=== PATIENT | female | born 1940 | race Caucasian/White ===

== ENCOUNTER 2018-09-27 20:39 | Inpatient (IN) | payer OTHER ==
[2018-09-27] MEDS ORDERED: ALBUTEROL SO4 2.5/IPRATROPIUM 0.5 INH SOL 3 ML VIAL.NEB. NEB ONE (20:45)
[2018-09-27] MEDS ORDERED: DEXAMETHASONE SOD PHOSPHATE 10 MG/1 ML VIAL ONE (20:45)
[2018-09-27 21:23] VITALS: BMI 18.8
--- NOTE | 2018-09-27 21:30 | PDOC ---
History of Present Illness - General Chief Complaint: Shortness of Breath Stated Complaint: DIFFICULTY BREATHING Time Seen by Provider: 09/27/18 21:25 History Source: Patient, Care Provider Exam Limitations: No Limitations - History of Present Illness Initial Comments: 09/27/18 21:53 Sources: Patient, Aid (Lexis) HPI: 77yo woman with PMH COPD (on 2L O2 at home), ATK amputation presenting with "pneumonia" since discharge from [facility] with pneumonia. Reports that she was discharged without antibiotics. Aid Lexis reports that this was her second hospitalization for pneumonia this year. Patient endorses constant nonproductive cough since discharge from OSH. Also reports 2 episodes of NBNB emesis today with "chest heaviness" and the sensation that her face and lungs are full of phlegm. Denies fever, chills, chest pain, abdominal pain, headache, current nausea / vomiting, diarrhea / constipation. All: - Levoquin --> hives - Sulfa Topical --> hives Meds: NO LIST PROVIDED - These are approximate [facility] at the time of H&P -Albuterol nebs -Ipratropium nebs (?) -Montelukast -Hydrocortizone cream for sacral ulcers PMH: COPD PSH: ATK amputation left leg SHx: Lives at home, has aid Past History - Travel Traveled outside of the country in the last 30 days: No Close contact w/someone who was outside of country & ill: No - Past Medical History Allergies/Adverse Reactions: Allergies Allergy/AdvReac Type Severity Reaction Status Date / Time divalproex sodium Allergy Verified 09/27/18 23:40 [From Depakote] fentanyl Allergy Verified 09/27/18 23:40 Sulfa (Sulfonamide Allergy Verified 09/27/18 23:40 Antibiotics) - Suicide/Smoking/Psychosocial Hx Smoking History: Unknown if ever smoked Review of Systems - Review of Systems Able to Perform ROS?: Yes Is the patient limited Mauritanian proficient: No Constitutional: No: Chills, Fever Respiratory: Yes: Cough, Shortness of Breath, Wheezing. No: Productive cough Cardiac (ROS): Yes: Other (heaviness / fullness of the chest). No: Symptoms Reported, Chest Pain, Irregular Heart Rate, Palpitations, Syncope ABD/GI: Yes: Nausea, Vomiting. No: Symptoms Reported, Abdominal Distended, Constipated, Diarrhea, Poor Fluid Intake, Rectal Bleeding, Tarry Stools : No: Symptoms Reported, Burning, Dysuria, Discharge, Pain, Urgency Musculoskeletal: No: Symptoms Reported Integumentary: No: Symptoms Reported Neurological: No: Symptoms reported, Headache, Numbness, Tingling All Other Systems: Reviewed and Negative *Physical Exam - Vital Signs Last Vital Signs Temp Pulse Resp BP Pulse Ox 98.2 F 87 19 132/87 97 09/27/18 20:40 09/27/18 20:40 09/27/18 20:40 09/27/18 20:40 09/27/18 20:40 - Physical Exam Comments: 09/27/18 22:10 Vitals reviewed, afebrile, HDS Gen: elderly woman with ATK on the left, laying in bed with NC in place HEENT: normal morphologies, MMM, EOMI, no rhinorrhea, throat non-injected CV: RRR, Nl s1/s2, no murmurs appreciated, no bruits Pulm: coarse expiratory wheezes heard throughout lung gonzalez Abd: soft, non-tender, non-distended, +BSx4 Skin: warm, dry, no jaundice Neuro: Alert and oriented, CN grossly intact ED Treatment Course - LABORATORY CBC & Chemistry Diagram: 09/27/18 23:26 09/27/18 23:26 Medical Decision Making - Medical Decision Making 09/27/18 21:30 77yo woman with PMH COPD (on 2L O2 at home), ATK amputation presenting with non- productive cough since discharge from [facility] with diagnosis of pneumonia. History notable for chest sensation and 2x emesis today, continued cough, absence of constitutional symptoms. Physical notable for poor O2 saturation initially, will not over oxygenate patient to avoid reducing respiratory drive, and wheezes throughout all lung gonzalez. Together concerning for continued pneumonia vs bronchitis vs most likely COPD exacerbation. Of note recently hospitalized patient concerning for HCAP, will direct coverage appropriately if necessary. -Patient Pharmacy is [facility] [phone] -CBC, CMP, Cardiac Profile, BNP, VBG -Duonebs q15x4, Solu-Medrol 125 IV -EKG, CXR -NC increased from 1.5 to 3L with increase in O2 sat from 89% to 93% 09/27/18 23:43 -Patient reevaluated, wheezes similar to prior exam, remains at 93% sat -Finishing first round of duonebs, s/p Solu-Medrol -CXR with mild infiltrate in right lower lobe, unclear significance in patient with recent PNA admission and no prior films -Points more in a direction of COPD exacerbation -Azithromycin 500 given as part of treatment for presumed COPD exacerbation 09/28/18 00:41 -Labs hemolyzed, resent -Planning for admission for COPD exacerbation 09/28/18 00:47 -No leukocytosis, afebrile, potentially resolving PNA on CXR makes infectious etiology of cough / SOB less convincing *DC/Admit/Observation/Transfer Diagnosis at time of Disposition: COPD exacerbation - Discharge Dispostion Condition at time of disposition: Guarded Decision to Admit order: Yes - Referrals Referrals: Ursula De Leon MD [Primary Care Provider] - - Patient Instructions - Post Discharge Activity
[2018-09-27] MEDS ORDERED: methylPREDNISolone NA SUCC 125 MG/2 ML VIAL IVPB ONE (22:04)
--- NOTE | 2018-09-27 22:06 | PDOC ---
Documentation entered by Manuela Carrillo SCRIBE, acting as scribe for Jamison Taylor MD. Jamison Taylor MD: This documentation has been prepared by the Gerardo yang Sammi, SCRIBE, under my direction and personally reviewed by me in its entirety. I confirm that the documentation accurately reflects all work, treatment, procedures, and medical decision making performed by me. Attending Attestation - Resident Resident Name: Pineda Miranda - ED Attending Attestation I have performed the following: I have examined & evaluated the patient, The case was reviewed & discussed with the resident, I agree w/resident's findings & plan, Exceptions are as noted - HPI HPI: 09/27/18 21:50 The patient is a 77 year old female, with a significant PMH of COPD, presenting to ED with cough and SOB. 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 Pt reports mild chest tightness but no pain. Denies F/C. States the cough is non-productive. Of note, pt was recently admitted to [facility] for 2 weeks for PNA. Is not currently on any abx. Pt also reports an episode of emesis today after eating breakfast. Denies abdominal pain. Denies nausea currently. No diarrhea/constipation. Allergies: Levaquin, topical sulfide solutions PCP: Abassi - Physicial Exam PE: 09/27/18 22:08 "GENERAL: Awake, alert, in no acute distress. HEAD: No signs of trauma EYES: PERRLA, EOMI, sclera anicteric, conjunctiva clear ENT: Auricles normal inspection, hearing grossly normal, nares patent, oropharynx clear without exudates. Moist mucosa NECK: Nontender, no stepoffs, Normal ROM, supple, no lymphadenopathy, JVD, or masses LUNGS: + diffuse rhonchi and expiratory wheezes HEART: Regular rate and rhythm, normal S1 and S2, no murmurs, rubs or gallops ABDOMEN: Soft, nontender, normoactive bowel sounds. No guarding, no rebound. No masses EXTREMITIES: + L BKA, Normal range of motion, no edema. No clubbing or cyanosis. No cords, erythema, or tenderness NEUROLOGICAL: Cranial nerves II through XII intact. SKIN: Warm, Dry, normal turgor, no rashes or lesions noted. - Medical Decision Making 09/27/18 22:09 77 F with SOB and cough. Suspect COPD exacerbation. Will also evaluate for recurrent PNA. Pt with N+V earlier today but no abdominal tenderness on exam. - Labs, trop, BNP - EKG - CXR - Nebs, steroids
[2018-09-27] MEDS ORDERED: AZITHROMYCIN IVPB 500 MG in DEXTROSE 5%-WATER - 250 ML IVPB ONE (23:38)
[2018-09-27 23:44] LABS: VENOUS PC02 42.4 mmHg (41-51); VENOUS PH 7.4 (7.31-7.41)
[2018-09-27 23:45] LABS: BASO % 0.3 % (0-2.0); EOS % 0.1 % (0-4.5); HEMATOCRIT 45.5 % (32.4-45.2); HEMOGLOBIN 15.2 GM/dL (10.7-15.3); LYMPH % 5.5 % (8-40); MCH 32.2 pg (25.7-33.7); MCHC 33.4 g/dl (32.0-36.0); MEAN CELL VOLUME 96.2 fl (80-96); MEAN PLT VOLUME 8.1 fl (7.5-11.1); NEUT % 91.1 % (42.8-82.8); PLATELET COUNT 310 K/MM3 (134-434); RBC 4.73 M/mm3 (3.60-5.2); RDW 14.1 % (11.6-15.6); WHITE BLOOD COUNT 6.1 K/mm3 (4.0-10.0)
[2018-09-28] MEDS: ALBUTEROL SO4 2.5/IPRATROPIUM 0.5 INH SOL 3 ML VIAL.NEB. NEB SCH ×3 (00:59→21:23)
[2018-09-28 02:06] LABS: ALK PHOS 184 U/L (45-117); ANION GAP 9 MMOL/L (8-16); BILIRUBIN,TOTAL 0.2 mg/dL (0.2-1); BLOOD UREA NITROGEN 10.8 mg/dL (7-18); CALCIUM 8.5 mg/dL (8.5-10.1); CHLORIDE 105 mmol/L (98-107); CO2 25 mmol/L (21-32); CREATININE 0.5 mg/dL (0.55-1.3); GLUCOSE,RANDOM 181 mg/dL (74-106); N-TERMINAL BNP 234.5 pg/ml (5-450); SGOT/AST 37 U/L (15-37); SGPT/ALT 37 U/L (13-61); SODIUM 139 mmol/L (136-145); TOT PROT 6.9 g/dl (6.4-8.2)
--- NOTE | 2018-09-28 02:34 | PDOC ---
*Physical Exam - Vital Signs Last Vital Signs Temp Pulse Resp BP Pulse Ox 98.2 F 87 19 132/87 97 09/27/18 20:40 09/27/18 20:40 09/27/18 20:40 09/27/18 20:40 09/27/18 20:40 - Physical Exam Comments: 09/28/18 02:05 Patient's care endorsed to me by Dr. Miranda at the end of his shift. Heart Score/ECG Review - History History: Slightly suspicious - Electrocardiogram EKG: Non specific repolarization disturbance - Age Age: >/= 65 - Risk Factors Based on the list above the patient has:: No risk factors known - Troponin Troponin: </= normal limit - Score Heart Score - Total: 3 ED Treatment Course - LABORATORY CBC & Chemistry Diagram: 09/27/18 23:26 09/28/18 01:28 - ADDITIONAL ORDERS Additional order review: Laboratory Results 09/27/18 09/27/18 23:26 23:26 VBG pH 7.40 POC VBG pCO2 42.4 POC VBG pO2 70.0 H VBG HCO3 25.4 VBG O2 Sat (Perla) 93.5 H VBG Base Excess 0.8 Sodium Cancelled Potassium Cancelled Chloride Cancelled Carbon Dioxide Cancelled Anion Gap Cancelled BUN Cancelled Creatinine Cancelled Est GFR (CKD-EPI)AfAm Cancelled Est GFR (CKD-EPI)NonAf Cancelled Random Glucose Cancelled Calcium Cancelled Total Bilirubin Cancelled AST Cancelled ALT Cancelled Alkaline Phosphatase Cancelled Creatine Kinase Cancelled Troponin I Cancelled B-Natriuretic Peptide Cancelled Total Protein Cancelled Albumin Cancelled 09/27/18 23:26 RBC 4.73 MCV 96.2 H MCHC 33.4 RDW 14.1 MPV 8.1 Neutrophils % 91.1 H Lymphocytes % 5.5 L Monocytes % 3.0 L Eosinophils % 0.1 Basophils % 0.3 - Medications Given in the ED: ED Medications Discontinued Medications Generic Name Dose Route Start Last Admin Trade Name Freq PRN Reason Stop Dose Admin Albuterol/Ipratropium 1 amp 09/27/18 22:15 09/28/18 01:00 Duoneb - NEB 09/27/18 23:01 1 amp Q15M BARRINGTON Administration Methylprednisolone Sodium Succinate 125 mg 09/27/18 22:04 09/28/18 00:59 Solu-Medrol - IVPB 09/27/18 22:05 125 mg ONCE ONE Administration Medical Decision Making - Medical Decision Making Laboratory Tests 09/27/18 09/27/18 09/27/18 23:26 23:26 23:26 WBC 6.1 RBC 4.73 Hgb 15.2 Hct 45.5 H MCV 96.2 H MCH 32.2 MCHC 33.4 RDW 14.1 Plt Count 310 MPV 8.1 Absolute Neuts (auto) 5.6 Neutrophils % 91.1 H Lymphocytes % 5.5 L Monocytes % 3.0 L Eosinophils % 0.1 Basophils % 0.3 Nucleated RBC % 0 VBG pH 7.40 POC VBG pCO2 42.4 POC VBG pO2 70.0 H VBG HCO3 25.4 VBG O2 Sat (Perla) 93.5 H VBG Base Excess 0.8 Sodium Cancelled Potassium Cancelled Chloride Cancelled Carbon Dioxide Cancelled Anion Gap Cancelled BUN Cancelled Creatinine Cancelled Est GFR (CKD-EPI)AfAm Cancelled Est GFR (CKD-EPI)NonAf Cancelled Random Glucose Cancelled Calcium Cancelled Total Bilirubin Cancelled AST Cancelled ALT Cancelled Alkaline Phosphatase Cancelled Creatine Kinase Cancelled Troponin I Cancelled B-Natriuretic Peptide Cancelled Total Protein Cancelled Albumin Cancelled 09/28/18 01:28 WBC RBC Hgb Hct MCV MCH MCHC RDW Plt Count MPV Absolute Neuts (auto) Neutrophils % Lymphocytes % Monocytes % Eosinophils % Basophils % Nucleated RBC % VBG pH POC VBG pCO2 POC VBG pO2 VBG HCO3 VBG O2 Sat (Perla) VBG Base Excess Sodium 139 Potassium 4.0 Chloride 105 Carbon Dioxide 25 Anion Gap 9 BUN 10.8 Creatinine 0.5 L Est GFR (CKD-EPI)AfAm 108.96 Est GFR (CKD-EPI)NonAf 94.01 Random Glucose 181 H Calcium 8.5 Total Bilirubin 0.2 AST 37 ALT 37 Alkaline Phosphatase 184 H Creatine Kinase Troponin I < 0.02 B-Natriuretic Peptide 234.5 Total Protein 6.9 Albumin 3.0 L 09/28/18 03:[address] Zambrano; patient admitted to her service. The patient currently states she feels generally unwell. She states she believes she was discharged from [facility] too early, still feeling just as sick. States breathing is somewhat improved but still coughing. 09/28/18 03:32 Added on vancomycin for presumed HCAP. *DC/Admit/Observation/Transfer Diagnosis at time of Disposition: COPD exacerbation Pneumonia Qualifiers: Pneumonia type: due to unspecified organism Laterality: unspecified laterality Lung location: unspecified part of lung Qualified Code(s): J18.9 - Pneumonia, unspecified organism - Discharge Dispostion Condition at time of disposition: Guarded Decision to Admit order: Yes - Referrals Referrals: Ursula De Leon MD [Primary Care Provider] - - Patient Instructions - Post Discharge Activity
[2018-09-28] MEDS ORDERED: AZITHROMYCIN IVPB 500 MG/250 ML BAG IVPB ONE (02:46)
[2018-09-28] MEDS ORDERED: VANCOMYCIN 1 GM in D5W (PRE-DOCKED) 1,000 MG/250 ML IVPB ONE (03:34)
[2018-09-28] MEDS ORDERED: VANCOMYCIN 1 GRAM (PRE-DOCKED) 1,000 MG/250 ML BAG IVPB ONE (04:06)
[2018-09-28] MEDS ORDERED: ALBUTEROL SO4 2.5/IPRATROPIUM 0.5 INH SOL 3 ML VIAL.NEB. NEB PRN (10:14)
--- NOTE | 2018-09-28 11:09 | EKG ---
Test Reason : Blood Pressure : / mmHG Vent. Rate : 087 BPM Atrial Rate : 087 BPM P-R Int : 160 ms QRS Dur : 078 ms QT Int : 390 ms P-R-T Axes : 090 -29 -73 degrees QTc Int : 469 ms NORMAL SINUS RHYTHM BASELINE ARTIFACT POSSIBLE LEFT ATRIAL ENLARGEMENT NONSPECIFIC ST AND T WAVE ABNORMALITY ABNORMAL ECG NO PREVIOUS ECGS AVAILABLE Confirmed by WILLIAMS TAN MD ([id number]) on 09/28/2018 11:08:52 AM Referred By: Confirmed By:WILLIAMS TAN MD
[2018-09-28] MEDS: methylPREDNISolone NA SUCC 40 MG/1 ML VIAL IVPUSH SCH ×2 (12:58→18:40)
--- NOTE | 2018-09-28 14:44 | CON.PULM ---
Consult Consult Specialty:: PULM/CCM Referred by:: Hospitalist Reason for Consultation:: SOB - History of Present Illness Chief Complaint: SOB History of Present Illness: 77 F, COPD on home O2 for about the past month. Admitted due to increased cough and SOB. Patient is a poor historian but her aide is at the bedside. Apparetly the patient reported worsening cough and SOB. No travel history or sick contacts. She was recently admitted to [place] twice for similar symptoms. On the last admission she was prescribed home O2. No documented fever or chills. - History Source History Provided By: Medical Record Limitations to Obtaining History: Poor Historian - Past Medical History Pulmonary: Yes: Bronchitis, COPD, O2 Dependent, Pneumonia. No: Asthma, Cancer, Previously Intubated, Pulmonary Embolus, Pulmonary Fibrosis, Sleep Apnea - Smoking History Smoking history: Unknown if ever smoked Home Medications - Allergies Allergies/Adverse Reactions: Allergies Allergy/AdvReac Type Severity Reaction Status Date / Time divalproex sodium Allergy Verified 09/27/18 23:40 [From Depakote] fentanyl Allergy Verified 09/27/18 23:40 Sulfa (Sulfonamide Allergy Verified 09/27/18 23:40 Antibiotics) - Home Medications Home Medications: Ambulatory Orders Unobtainable 09/28/18 Review of Systems Unable to obtain ROS, reason: Poor historian Physical Exam Vital Sings: Vital Signs Temperature 98.2 F 09/28/18 13:44 Pulse Rate 86 09/28/18 13:44 Respiratory Rate 18 09/28/18 13:44 Blood Pressure 121/76 09/28/18 13:44 O2 Sat by Pulse Oximetry (%) 98 09/28/18 09:00 Constitutional: Yes: Well Nourished, No Distress Eyes: Yes: Conjunctiva Clear, EOM Intact HENT: Yes: Atraumatic, Normocephalic Neck: Yes: Supple, Trachea Midline Cardiovascular: Yes: Regular Rate and Rhythm Respiratory: Yes: Cough, Diminished, On Nasal O2, Rhonchi. No: Accessory Muscle Use, Rales, SOB, SOB on Exertion, Stridor, Tachypnea, Wheezes ...Inspection: Yes: WNL ...Clubbing: No Gastrointestinal: Yes: Normal Bowel Sounds, Soft Renal/: Yes: WNL Extremities: Yes: Shortened Edema: Yes Peripheral Pulses WNL: Yes Integumentary: Yes: WNL Neurological: Yes: WNL, Alert Psychiatric: Yes: Alert Labs: CBC, BMP 09/27/18 23:26 09/28/18 01:28 Imaging - Results Chest X-ray: Report Reviewed, Image Reviewed Problem List - Problems (1) Abnormal CXR Code(s): R93.89 - ABNORMAL FINDINGS ON DX IMAGING OF OTH BODY STRUCTURES (2) COPD exacerbation Code(s): J44.1 - CHRONIC OBSTRUCTIVE PULMONARY DISEASE W (ACUTE) EXACERBATION (3) Pneumonia Code(s): J18.9 - PNEUMONIA, UNSPECIFIED ORGANISM Qualifiers: Pneumonia type: due to unspecified organism Laterality: unspecified laterality Lung location: unspecified part of lung Qualified Code(s): J18.9 - Pneumonia, unspecified organism Assessment/Plan Medrol Urine antigen BD TX standing and PRN Noted Levaquin CT chest was ordered but not completed Will follow Thank you. Dr Hollingsworth
[2018-09-28] MEDS ORDERED: ALBUTEROL SO4 0.083% IH SOL 2.5 MG/3 ML VIAL.NEB. NEB PRN (14:48)
--- NOTE | 2018-09-28 20:47 | HP ---
Admitting History and Physical - Admission History of Present Illness: Pt is a 77 y/o female with PMH significant for COPD (on 2L O2 at home), who presents to the ER "pneumonia" since discharge from [facility]. As per family pt was discharged without antibiotics. Pt complains of nonproductive cough. for a few weeks. On day if admission it was reported that pt had 2 episodes of NBNB emesis with "chest heaviness". - Past Medical History Pulmonary: Yes: COPD, O2 Dependent, Pneumonia - Smoking History Smoking history: Unknown if ever smoked Home Medications - Allergies Allergies/Adverse Reactions: Allergies Allergy/AdvReac Type Severity Reaction Status Date / Time divalproex sodium Allergy Verified 09/27/18 23:40 [From Depakote] fentanyl Allergy Verified 09/27/18 23:40 Sulfa (Sulfonamide Allergy Verified 09/27/18 23:40 Antibiotics) - Home Medications Home Medications: Ambulatory Orders Unobtainable 09/28/18 Physical Examination Vital Signs: Vital Signs Temperature 98.6 F 09/28/18 19:24 Pulse Rate 75 09/28/18 19:24 Respiratory Rate 18 09/28/18 19:24 Blood Pressure 109/67 09/28/18 19:24 O2 Sat by Pulse Oximetry (%) 98 09/28/18 09:00 Eyes: Yes: WNL HENT: Yes: WNL Neck: Yes: WNL, Supple Cardiovascular: Yes: WNL, Regular Rate and Rhythm Respiratory: Yes: Wheezes Gastrointestinal: Yes: WNL, Normal Bowel Sounds, Soft Edema: No Labs: CBC, BMP 09/27/18 23:26 09/28/18 01:28 Problem List - Problems (1) COPD exacerbation Assessment/Plan: Cont IV steroids Cont IV levaquin Cont nebulizers CXR showes ? infrahilar opacity Will check ct scan chest Code(s): J44.1 - CHRONIC OBSTRUCTIVE PULMONARY DISEASE W (ACUTE) EXACERBATION
[2018-09-29] MEDS: methylPREDNISolone NA SUCC 40 MG/1 ML VIAL IVPUSH SCH ×3 (02:21→17:15)
[2018-09-29] MEDS: ALBUTEROL SO4 2.5/IPRATROPIUM 0.5 INH SOL 3 ML VIAL.NEB. NEB SCH ×3 (07:40→19:47)
[2018-09-29 08:30] LABS: ALBUMIN 2.9 g/dl (3.4-5.0); BILIRUBIN,TOTAL 0.3 mg/dL (0.2-1); BLOOD UREA NITROGEN 8.2 mg/dL (7-18); CALCIUM 8.5 mg/dL (8.5-10.1); CREATININE 0.4 mg/dL (0.55-1.3); POTASSIUM 4.7 mmol/L (3.5-5.1); TOT PROT 6.7 g/dl (6.4-8.2)
[2018-09-29] MEDS: ENOXAPARIN NA (PORCINE) 40 MG/0.4 ML DISP.SYRIN SQ SCH (09:51)
[2018-09-29 10:22] LABS: BASO % 0.1 % (0-2.0); HEMATOCRIT 43.8 % (32.4-45.2); HEMOGLOBIN 14.6 GM/dL (10.7-15.3); LYMPH % 23.3 % (8-40); MCH 31.9 pg (25.7-33.7); MCHC 33.3 g/dl (32.0-36.0); MEAN PLT VOLUME 8.2 fl (7.5-11.1); MONO % 12.5 % (3.8-10.2); NEUT % 64.1 % (42.8-82.8); PLATELET COUNT 293 K/MM3 (134-434); RBC 4.57 M/mm3 (3.60-5.2); RDW 14.3 % (11.6-15.6); WHITE BLOOD COUNT 5.3 K/mm3 (4.0-10.0)
--- NOTE | 2018-09-29 14:08 | PN ---
Progress Note, Physician History of Present Illness: pulmonary alert,feeling better,less dyspneic - Current Medication List Current Medications: Active Medications Albuterol Sulfate (Ventolin 0.083% Nebulizer Soln -) 1 amp NEB Q4H PRN PRN Reason: SHORT OF BREATH/WHEEZING Albuterol/Ipratropium (Duoneb -) 1 amp NEB RTID B[place]INGTON Last Admin: 09/29/18 07:40 Dose: 1 amp Enoxaparin Sodium (Lovenox -) 40 mg SQ DAILY B[place]INGTON Last Admin: 09/29/18 09:51 Dose: 40 mg Levofloxacin (Levaquin 500 Mg Premixed Ivpb -) 500 mg in 100 mls @ 100 mls/hr IVPB DAILY BARRINGTON; Protocol Last Admin: 09/29/18 09:51 Dose: 100 mls/hr Methylprednisolone Sodium Succinate (Solu-Medrol -) 40 mg IVPUSH Q8H-IV BARRINGTON Last Admin: 09/29/18 09:51 Dose: 40 mg - Objective Vital Signs: Vital Signs Temperature 98.4 F 09/29/18 10:00 Pulse Rate 98 H 09/29/18 10:00 Respiratory Rate 20 09/29/18 10:00 Blood Pressure 110/87 09/29/18 10:00 O2 Sat by Pulse Oximetry (%) 95 09/29/18 09:00 Constitutional: Yes: Calm, Thin Eyes: Yes: WNL HENT: Yes: WNL Neck: Yes: WNL Cardiovascular: Yes: Regular Rate and Rhythm, S1, S2 Respiratory: Yes: Wheezes (few scattered wheezes) Gastrointestinal: Yes: Normal Bowel Sounds, Soft Extremities: Yes: WNL Edema: No Labs: CBC, BMP 09/29/18 09:20 09/29/18 07:00 Assessment/Plan Problem List - Problems (1) Abnormal CXR Code(s): R93.89 - ABNORMAL FINDINGS ON DX IMAGING OF OTH BODY STRUCTURES (2) COPD exacerbation Code(s): J44.1 - CHRONIC OBSTRUCTIVE PULMONARY DISEASE W (ACUTE) EXACERBATION (3) Pneumonia Code(s): J18.9 - PNEUMONIA, UNSPECIFIED ORGANISM Qualifiers: Pneumonia type: due to unspecified organism Laterality: unspecified laterality Lung location: unspecified part of lung Qualified Code(s): J18.9 - Pneumonia, unspecified organism Assessment/Plan Medrol same dose BD TX standing and PRN Levaquin DR BRILL
--- NOTE | 2018-09-29 20:38 | PN ---
Progress Note, Physician History of Present Illness: No new complaints - Current Medication List Current Medications: Active Medications Albuterol Sulfate (Ventolin 0.083% Nebulizer Soln -) 1 amp NEB Q4H PRN PRN Reason: SHORT OF BREATH/WHEEZING Albuterol/Ipratropium (Duoneb -) 1 amp NEB RTID BARRINGTON Last Admin: 09/29/18 16:15 Dose: 1 amp Enoxaparin Sodium (Lovenox -) 40 mg SQ DAILY BARRINGTON Last Admin: 09/29/18 09:51 Dose: 40 mg Levofloxacin (Levaquin 500 Mg Premixed Ivpb -) 500 mg in 100 mls @ 100 mls/hr IVPB DAILY BARRINGTON; Protocol Last Admin: 09/29/18 09:51 Dose: 100 mls/hr Methylprednisolone Sodium Succinate (Solu-Medrol -) 40 mg IVPUSH Q8H-IV BARRINGTON Last Admin: 09/29/18 17:15 Dose: 40 mg - Objective Vital Signs: Vital Signs Temperature 99.2 F 09/29/18 18:00 Pulse Rate 91 H 09/29/18 18:00 Respiratory Rate 20 09/29/18 18:00 Blood Pressure 113/77 09/29/18 18:00 O2 Sat by Pulse Oximetry (%) 95 09/29/18 09:00 Respiratory: Yes: Diminished, Wheezes Gastrointestinal: Yes: WNL, Normal Bowel Sounds, Soft Edema: No Labs: CBC, BMP 09/29/18 09:20 09/29/18 07:00 Problem List - Problems (1) COPD exacerbation Assessment/Plan: Cont IV steroids Cont IV levaquin Cont nebulizers CXR showes ? infrahilar opacity CT scan chest shows ? rt infrahilar mass/COPD/atelectasis ?PET scan as outpt Code(s): J44.1 - CHRONIC OBSTRUCTIVE PULMONARY DISEASE W (ACUTE) EXACERBATION
[2018-09-30] MEDS: methylPREDNISolone NA SUCC 40 MG/1 ML VIAL IVPUSH SCH ×3 (02:43→17:38)
[2018-09-30] MEDS: ALBUTEROL SO4 2.5/IPRATROPIUM 0.5 INH SOL 3 ML VIAL.NEB. NEB SCH ×3 (07:32→20:50)
[2018-09-30] MEDS: ENOXAPARIN NA (PORCINE) 40 MG/0.4 ML DISP.SYRIN SQ SCH (09:16)
--- NOTE | 2018-09-30 16:20 | PN ---
Progress Note, Physician History of Present Illness: pulmonary alert,comfortable,-sob,+ moist cough - Current Medication List Current Medications: Active Medications Albuterol Sulfate (Ventolin 0.083% Nebulizer Soln -) 1 amp NEB Q4H PRN PRN Reason: SHORT OF BREATH/WHEEZING Albuterol/Ipratropium (Duoneb -) 1 amp NEB RTID BARRINGTON Last Admin: 09/30/18 14:30 Dose: 1 amp Enoxaparin Sodium (Lovenox -) 40 mg SQ DAILY B[place]INGTON Last Admin: 09/30/18 09:16 Dose: 40 mg Levofloxacin (Levaquin 500 Mg Premixed Ivpb -) 500 mg in 100 mls @ 100 mls/hr IVPB DAILY BARRINGTON; Protocol Last Admin: 09/30/18 09:16 Dose: 100 mls/hr Methylprednisolone Sodium Succinate (Solu-Medrol -) 40 mg IVPUSH Q8H-IV BARRINGTON Last Admin: 09/30/18 09:16 Dose: 40 mg - Objective Vital Signs: Vital Signs Temperature 97.9 F 09/30/18 14:59 Pulse Rate 84 09/30/18 14:59 Respiratory Rate 20 09/30/18 14:59 Blood Pressure 134/86 09/30/18 14:59 O2 Sat by Pulse Oximetry (%) 92 L 09/30/18 09:00 Constitutional: Yes: Well Nourished, Calm Eyes: Yes: WNL HENT: Yes: WNL Neck: Yes: WNL Cardiovascular: Yes: Regular Rate and Rhythm, S1, S2 Respiratory: Yes: Rhonchi (scattered chase rhonchi) Gastrointestinal: Yes: Normal Bowel Sounds, Soft Extremities: Yes: WNL Edema: No Labs: CBC, BMP 09/29/18 09:20 - ....Imaging Cat Scan: Report Reviewed, Image Reviewed (? r infrahilar mass) Assessment/Plan Problem List - Problems (1) Abnormal CXR Code(s): R93.89 - ABNORMAL FINDINGS ON DX IMAGING OF OTH BODY STRUCTURES (2) COPD exacerbation Code(s): J44.1 - CHRONIC OBSTRUCTIVE PULMONARY DISEASE W (ACUTE) EXACERBATION (3) Pneumonia Code(s): J18.9 - PNEUMONIA, UNSPECIFIED ORGANISM Qualifiers: Pneumonia type: due to unspecified organism Laterality: unspecified laterality Lung location: unspecified part of lung Qualified Code(s): J18.9 - Pneumonia, unspecified organism Assessment/Plan Medrol same dose BD TX standing and PRN Levaquin PET CT outpatient chest cta DR REYES
--- NOTE | 2018-09-30 23:55 | PN ---
Progress Note, Physician History of Present Illness: No new complaints - Current Medication List Current Medications: Active Medications Albuterol Sulfate (Ventolin 0.083% Nebulizer Soln -) 1 amp NEB Q4H PRN PRN Reason: SHORT OF BREATH/WHEEZING Albuterol/Ipratropium (Duoneb -) 1 amp NEB RTID BARRINGTON Last Admin: 09/30/18 20:50 Dose: 1 amp Enoxaparin Sodium (Lovenox -) 40 mg SQ DAILY B[place]INGTON Last Admin: 09/30/18 09:16 Dose: 40 mg Levofloxacin (Levaquin 500 Mg Premixed Ivpb -) 500 mg in 100 mls @ 100 mls/hr IVPB DAILY B[place]; Protocol Last Admin: 09/30/18 09:16 Dose: 100 mls/hr Methylprednisolone Sodium Succinate (Solu-Medrol -) 40 mg IVPUSH Q8H-IV ABRRINGTON Last Admin: 09/30/18 17:38 Dose: 40 mg - Objective Vital Signs: Vital Signs Temperature 97.6 F 09/30/18 18:05 Pulse Rate 89 09/30/18 18:05 Respiratory Rate 20 09/30/18 18:05 Blood Pressure 125/68 09/30/18 18:05 O2 Sat by Pulse Oximetry (%) 92 L 09/30/18 09:00 Neck: Yes: WNL, Supple Cardiovascular: Yes: WNL, Regular Rate and Rhythm Respiratory: Yes: Wheezes Gastrointestinal: Yes: WNL, Normal Bowel Sounds, Soft Edema: No Labs: CBC, BMP 09/29/18 09:20 09/29/18 07:00 Problem List - Problems (1) COPD exacerbation Assessment/Plan: Cont IV steroids Cont IV levaquin Cont nebulizers CXR showes ? infrahilar opacity CT scan chest shows ? rt infrahilar mass/COPD/atelectasis ?PET scan as outpt Code(s): J44.1 - CHRONIC OBSTRUCTIVE PULMONARY DISEASE W (ACUTE) EXACERBATION (2) Thrombus Assessment/Plan: Thrombus in lower thoracic and upper abdominal aorta Vascular consult Code(s): I82.90 - ACUTE EMBOLISM AND THROMBOSIS OF UNSPECIFIED VEIN
[2018-10-01] MEDS: methylPREDNISolone NA SUCC 40 MG/1 ML VIAL IVPUSH SCH ×3 (01:49→17:47)
[2018-10-01 08:04] LABS: BASO % 0.1 % (0-2.0); HEMATOCRIT 43.4 % (32.4-45.2); HEMOGLOBIN 14.7 GM/dL (10.7-15.3); LYMPH % 16.5 % (8-40); MCHC 33.8 g/dl (32.0-36.0); MEAN CELL VOLUME 94.7 fl (80-96); MEAN PLT VOLUME 8.1 fl (7.5-11.1); MONO % 6.8 % (3.8-10.2); NEUT % 76.6 % (42.8-82.8); PLATELET COUNT 323 K/MM3 (134-434); RBC 4.58 M/mm3 (3.60-5.2); WHITE BLOOD COUNT 5.9 K/mm3 (4.0-10.0)
[2018-10-01 08:36] LABS: BILIRUBIN,TOTAL 0.4 mg/dL (0.2-1); CALCIUM 8.7 mg/dL (8.5-10.1); CREATININE 0.5 mg/dL (0.55-1.3); POTASSIUM 3.7 mmol/L (3.5-5.1); TOT PROT 6.8 g/dl (6.4-8.2)
[2018-10-01] MEDS: ALBUTEROL SO4 2.5/IPRATROPIUM 0.5 INH SOL 3 ML VIAL.NEB. NEB SCH ×3 (08:55→20:28)
[2018-10-01] MEDS: ENOXAPARIN NA (PORCINE) 40 MG/0.4 ML DISP.SYRIN SQ SCH (10:04)
--- NOTE | 2018-10-01 15:11 | PN ---
Progress Note (short form) - Note Progress Note: More awake and alert. Still with moist cough but the breathing is better. Less SOB. No CP. Intake & Output 09/28/18 09/29/18 09/30/18 10/01/18 23:59 23:59 23:59 23:59 Intake Total 450 537 0 Output Total 200 Balance 250 537 0 Weight 120 lb 120 lb Last Vital Signs Temp Pulse Resp BP Pulse Ox 98.2 F 101 H 20 142/73 94 L 10/01/18 14:44 10/01/18 14:44 10/01/18 10:00 10/01/18 14:44 09/30/18 21:00 Active Medications Albuterol Sulfate (Ventolin 0.083% Nebulizer Soln -) 1 amp NEB Q4H PRN PRN Reason: SHORT OF BREATH/WHEEZING Albuterol/Ipratropium (Duoneb -) 1 amp NEB RTID [facility] Last Admin: 10/01/18 13:53 Dose: Not Given Enoxaparin Sodium (Lovenox -) 40 mg SQ DAILY [facility] Last Admin: 10/01/18 10:04 Dose: 40 mg Levofloxacin (Levaquin 500 Mg Premixed Ivpb -) 500 mg in 100 mls @ 100 mls/hr IVPB DAILY [facility]; Protocol Last Admin: 10/01/18 10:04 Dose: 100 mls/hr Methylprednisolone Sodium Succinate (Solu-Medrol -) 40 mg IVPUSH Q8H-IV [facility] Last Admin: 10/01/18 10:05 Dose: 40 mg Constitutional: Yes: Well Nourished, NAD Eyes: Yes: WNL HENT: Yes: WNL Neck: Yes: WNL Cardiovascular: Yes: Regular Rate and Rhythm, S1, S2 Respiratory: Yes: Bilateral scattered Rhonchi, no wheeze Gastrointestinal: Yes: Normal Bowel Sounds, Soft Extremities: Yes: WNL Edema: No Labs: Laboratory Results - last 24 hr 10/01/18 10/01/18 06:34 06:34 WBC 5.9 RBC 4.58 Hgb 14.7 Hct 43.4 MCV 94.7 MCH 32.0 MCHC 33.8 RDW 14.0 Plt Count 323 MPV 8.1 Absolute Neuts (auto) 4.5 Neutrophils % 76.6 Lymphocytes % 16.5 D Monocytes % 6.8 Eosinophils % 0.0 Basophils % 0.1 Nucleated RBC % 0 Sodium 143 Potassium 3.7 Chloride 108 H Carbon Dioxide 26 Anion Gap 9 BUN 7.0 Creatinine 0.5 L Est GFR (CKD-EPI)AfAm 108.96 Est GFR (CKD-EPI)NonAf 94.01 Random Glucose 116 H Calcium 8.7 Total Bilirubin 0.4 AST 26 ALT 35 Alkaline Phosphatase 156 H Total Protein 6.8 Albumin 3.0 L Assessment/Plan Problem List - Problems (1) Abnormal CXR Code(s): R93.89 - ABNORMAL FINDINGS ON DX IMAGING OF OTH BODY STRUCTURES (2) COPD exacerbation Code(s): J44.1 - CHRONIC OBSTRUCTIVE PULMONARY DISEASE W (ACUTE) EXACERBATION (3) Pneumonia Code(s): J18.9 - PNEUMONIA, UNSPECIFIED ORGANISM Qualifiers: Pneumonia type: due to unspecified organism Laterality: unspecified laterality Lung location: unspecified part of lung Qualified Code(s): J18.9 - Pneumonia, unspecified organism Assessment/Plan IV Medrol BD TX standing and PRN Levaquin PET CT outpatient Noted CTA ordered to assess dissection Dr Hollingsworth Problem List - Problems (1) Abnormal CXR Code(s): R93.89 - ABNORMAL FINDINGS ON DX IMAGING OF OTH BODY STRUCTURES (2) COPD exacerbation Code(s): J44.1 - CHRONIC OBSTRUCTIVE PULMONARY DISEASE W (ACUTE) EXACERBATION (3) Pneumonia Code(s): J18.9 - PNEUMONIA, UNSPECIFIED ORGANISM Qualifiers: Pneumonia type: due to unspecified organism Laterality: unspecified laterality Lung location: unspecified part of lung Qualified Code(s): J18.9 - Pneumonia, unspecified organism
--- NOTE | 2018-10-01 21:43 | PN ---
Progress Note, Physician History of Present Illness: No new complaints - Current Medication List Current Medications: Active Medications Albuterol Sulfate (Ventolin 0.083% Nebulizer Soln -) 1 amp NEB Q4H PRN PRN Reason: SHORT OF BREATH/WHEEZING Albuterol/Ipratropium (Duoneb -) 1 amp NEB RTID [facility] Last Admin: 10/01/18 20:28 Dose: 1 amp Enoxaparin Sodium (Lovenox -) 40 mg SQ DAILY [facility] Last Admin: 10/01/18 10:04 Dose: 40 mg Levofloxacin (Levaquin 500 Mg Premixed Ivpb -) 500 mg in 100 mls @ 100 mls/hr IVPB DAILY [facility]; Protocol Last Admin: 10/01/18 10:04 Dose: 100 mls/hr Methylprednisolone Sodium Succinate (Solu-Medrol -) 40 mg IVPUSH Q8H-IV [facility] Last Admin: 10/01/18 17:47 Dose: 40 mg - Objective Vital Signs: Vital Signs Temperature 98.4 F 10/01/18 19:00 Pulse Rate 97 H 10/01/18 19:00 Respiratory Rate 22 H 10/01/18 19:00 Blood Pressure 159/97 10/01/18 19:00 O2 Sat by Pulse Oximetry (%) 91 L 10/01/18 09:00 Neck: Yes: WNL, Supple Cardiovascular: Yes: WNL, Regular Rate and Rhythm Respiratory: Yes: WNL, Regular, CTA Bilaterally Gastrointestinal: Yes: WNL, Normal Bowel Sounds, Soft Labs: CBC, BMP 10/01/18 06:34 10/01/18 06:34 Problem List - Problems (1) COPD exacerbation Assessment/Plan: Cont IV steroids Cont IV levaquin Cont nebulizers CXR showes ? infrahilar opacity CT scan chest shows ? rt infrahilar mass/COPD/atelectasis ?PET scan as outpt Code(s): J44.1 - CHRONIC OBSTRUCTIVE PULMONARY DISEASE W (ACUTE) EXACERBATION
[2018-10-02] MEDS: methylPREDNISolone NA SUCC 40 MG/1 ML VIAL IVPUSH SCH ×2 (02:00→09:26)
[2018-10-02] MEDS: ALBUTEROL SO4 2.5/IPRATROPIUM 0.5 INH SOL 3 ML VIAL.NEB. NEB SCH ×3 (07:30→20:30)
[2018-10-02] MEDS: ENOXAPARIN NA (PORCINE) 40 MG/0.4 ML DISP.SYRIN SQ SCH (09:26)
--- NOTE | 2018-10-02 12:19 | CONSULT ---
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 Admitted for COPD exacerbation and now on Levaquin and Medrol. Chest CT revealed LLL nodule and thrombus in thoracic and abdominal aorta. Dissection cannot be ruled out. Followed by Dr. Eddie Meadows (neurology/[facility]) for stroke prophylaxis and seizures- reports she is on dilantin at home. Asked to be seen for confusional state. Denies any seizure activity during admission. Review of systems sig for "phantom pains" in left leg after surgery [address] of brain (reviewed): extensive right cerebral lucency suggesting chronic ischemic changes in BOTH right MCA and PETE territories. Atrophy (R>L) WBC= 5.1 MCV= 94.5 FORTINO: Cor reg. No bruit. Neck supple. Wheezing. S/P L AKA. Bruising to right hand. Wearing diaper. NEURO: Alert with non-fluent speech. Ox "7th floor [employer], no Elizabeth's" "December no September" Friday" TRUMP. Can reverse. 03/22 recall @ 3 min. + glabella. CNII-CNXII: EOM's full. No blink to threat from left. Gag ok. Motor: Spastic hemiparesis left arm. Reflexes brisk L > R. Strength normal on R. MARGARETTE's preserved on R. R Plantar silent. Coordination: No R FTN dystaxia. Sensation: Feels pinch R > L. Gait: deferred Impression: Mild B/L cerebral dysfunction (OMS, chronic) likely secondary to [employer] microvascular Severe right cerebral accentuation (Chronic) due to old right CVA (s). Seizure disorder by history Worsened by Toxic-Metabolic Encephalopathy (COPD/PNA) Suggest: Continue antibiotics and hydration. Check TSH, B12, RPR, Dilantin level Review last consultation with Dr. Meadows and resume dilantin for seizure prophylaxis Empirically resume Dilantin 300 mg q HS Agree with clonapepam, as per Dr. Estrada to avoid any possibilty of confusion related to Benzodiazepine withdrawal. Agree with vascular consultation. Would also suggest cardiac consultation (R/O paraxysmal a fib and the need to anticoagulation). Thank you very much, Robb Chavez MD
--- NOTE | 2018-10-02 13:33 | PN ---
Progress Note (short form) - Note Progress Note: Vascular Surgery CT chest reviewed. Thrombus in descending aorta. CTA abd does not show any dissection in aorta. However not offically read. Thrombus could be normal for the pt. No need for any surgery. Just medical management. Will await official read. Julian muhammad DO
--- NOTE | 2018-10-02 14:45 | PN ---
Progress Note (short form) - Note Progress Note: Awake and alert. Breathing feels better. Still with some moist cough but improving. No CP. Intermittent SAGE. Intake & Output 09/29/18 09/30/18 10/01/18 10/02/18 23:59 23:59 23:59 23:59 Intake Total 537 0 50 350 Balance 537 0 50 350 Weight 120 lb Last Vital Signs Temp Pulse Resp BP Pulse Ox 97.4 F L 98 H 22 H 109/57 L 97 10/02/18 10:00 10/02/18 10:00 10/02/18 10:00 10/02/18 10:00 10/02/18 09:00 Active Medications Albuterol Sulfate (Ventolin 0.083% Nebulizer Soln -) 1 amp NEB Q4H PRN PRN Reason: SHORT OF BREATH/WHEEZING Albuterol/Ipratropium (Duoneb -) 1 amp NEB RTID [facility] Last Admin: 10/02/18 07:30 Dose: 1 amp Enoxaparin Sodium (Lovenox -) 40 mg SQ DAILY [facility] Last Admin: 10/02/18 09:26 Dose: 40 mg Levofloxacin (Levaquin 500 Mg Premixed Ivpb -) 500 mg in 100 mls @ 100 mls/hr IVPB DAILY [facility]; Protocol Last Admin: 10/02/18 09:26 Dose: 100 mls/hr Methylprednisolone Sodium Succinate (Solu-Medrol -) 40 mg IVPUSH Q8H-IV [facility] Last Admin: 10/02/18 09:26 Dose: 40 mg Constitutional: Yes: Well Nourished, NAD Eyes: Yes: WNL HENT: Yes: WNL Neck: Yes: WNL Cardiovascular: Yes: Regular Rate and Rhythm, S1, S2 Respiratory: Yes: Bilateral scattered Rhonchi, no wheeze Gastrointestinal: Yes: Normal Bowel Sounds, Soft Extremities: Yes: WNL Edema: No Labs: Assessment/Plan Problem List - Problems (1) Abnormal CXR Code(s): R93.89 - ABNORMAL FINDINGS ON DX IMAGING OF OTH BODY STRUCTURES (2) COPD exacerbation Code(s): J44.1 - CHRONIC OBSTRUCTIVE PULMONARY DISEASE W (ACUTE) EXACERBATION (3) Pneumonia Code(s): J18.9 - PNEUMONIA, UNSPECIFIED ORGANISM Qualifiers: Pneumonia type: due to unspecified organism Laterality: unspecified laterality Lung location: unspecified part of lung Qualified Code(s): J18.9 - Pneumonia, unspecified organism Assessment/Plan Wean IV Medrol BD TX standing and PRN Levaquin PET CT outpatient Family will be providing CT images from [facility] Problem List - Problems (1) Abnormal CXR Code(s): R93.89 - ABNORMAL FINDINGS ON DX IMAGING OF OTH BODY STRUCTURES (2) COPD exacerbation Code(s): J44.1 - CHRONIC OBSTRUCTIVE PULMONARY DISEASE W (ACUTE) EXACERBATION (3) Pneumonia Code(s): J18.9 - PNEUMONIA, UNSPECIFIED ORGANISM Qualifiers: Pneumonia type: due to unspecified organism Laterality: unspecified laterality Lung location: unspecified part of lung Qualified Code(s): J18.9 - Pneumonia, unspecified organism
[2018-10-02] MEDS ORDERED: clonazePAM 0.5 MG TABLET PO SCH (15:30)
--- NOTE | 2018-10-02 15:30 | CON.PSY ---
Psychiatry Consult Chief Complaint: I am ok, I am very anxious, i use take Valium from . I am upset. patient is able to respond to questions. Symptoms: reports: Anxiety - Previous Psychiatric Treatment Outpatient: More than 6 mos ago Inpatient: None - Previous Substance Abuse Treatment Outpatient: None - Reason for Previous Treatment Reason for Previous Treatment: Anxiety or Panic Disorder - Current Medications Current Medications: Active Medications Albuterol Sulfate (Ventolin 0.083% Nebulizer Soln -) 1 amp NEB Q4H PRN PRN Reason: SHORT OF BREATH/WHEEZING Albuterol/Ipratropium (Duoneb -) 1 amp NEB RTID [facility] Last Admin: 10/02/18 07:30 Dose: 1 amp Enoxaparin Sodium (Lovenox -) 40 mg SQ DAILY [facility] Last Admin: 10/02/18 09:26 Dose: 40 mg Levofloxacin (Levaquin 500 Mg Premixed Ivpb -) 500 mg in 100 mls @ 100 mls/hr IVPB DAILY COUNTS INCLUDE 234 BEDS AT THE [facility]; Protocol Last Admin: 10/02/18 09:26 Dose: 100 mls/hr Methylprednisolone Sodium Succinate (Solu-Medrol -) 40 mg IVPUSH DAILY [facility] - Allergies Allergies: Allergies Allergy/AdvReac Type Severity Reaction Status Date / Time divalproex sodium Allergy Verified 09/27/18 23:40 [From Depakote] fentanyl Allergy Verified 09/27/18 23:40 Sulfa (Sulfonamide Allergy Verified 09/27/18 23:40 Antibiotics) - Current Living Status Usual Living Arrangement: Alone - Current Mental Status Evaluation Appearance: Well Groomed Attitude: Cooperative - Affect Affect: Full Range Appropriateness: Appropriate to Content - Mood Mood: Anxious - Speech/Language Expressive: Coherent - Psychomotor Activity Psychomotor Activity: Hyperactive - Thought Process Thought Process: Intact - Thought Content Hallucinations: Absent Delusions: Absent - Self Perception Self Perception: No Impairment - Cognition Attention: Alert Orientation: Time Memory, Immediate Recall: Intact Memory, Short Term: 3/3 Memory, Remote with Promptin/3 - Concentration Serial Sevens Intact: No Simple Calculations Intact: Yes - Abstraction Proverb Interpretation: Intact Judgement: Intact - Insight Insight: Intact - Impulse Control Impulse Control: Good Control - Suicidal Ideation Suicidal Ideation: No - Homicidal Ideation Homicidal Ideation: No Assessment/Plan 1) patient has the mental capacity to make decisions at t5his time. 2) Klonapin 0.5mg for anxiety disorder.
--- NOTE | 2018-10-02 17:41 | PN ---
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 Pt was noted to be poor historian early in her hospital course here, however has improved and deemed to have capacity. Pt had CT Head performed which originally was reported to have acute ICH so we were asked to medically evaluate. Brief PE: VS 10/02/18 17:21 Temperature 98.3 F Pulse Rate 93 H Respiratory 20 Rate Blood Pressure 130/80 Gen: NAD, about to eat dinner, awake, and oriented HEENT: No Gaze deficit, increased secretions, MMM Lungs: Cardiac: RRR no murmurs EXT: L contracted upper extremity, L AKA with no lesions noted at repair, no edema Neuro: EOMI, gag +, hemiparesis of L arm, strength 5/5 in R upper and lower extremities, downgoing babinski R. 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 --Pt's Head CT addended due to type error. pt has No ICH noted. 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 No acute infarcts --In lieu of pt's continued status and revised head CT can continue current management --Continue Medrol 40mg IVP qdaily --Continue Levaquin for PNA Thank you and recall if respiratory status worsens or pt overall deteriorates Mariano Haro, DO - IM PGY-3
[2018-10-02] MEDS: PHENYTOIN NA EXTENDED 100 MG CAPSULE (FP) PO SCH (22:36)
--- NOTE | 2018-10-02 22:40 | PN ---
Progress Note, Physician History of Present Illness: No new complaints ?Competency Pt seen by psych who found pt competent CT scan head also ordered - Current Medication List Current Medications: Active Medications Albuterol Sulfate (Ventolin 0.083% Nebulizer Soln -) 1 amp NEB Q4H PRN PRN Reason: SHORT OF BREATH/WHEEZING Albuterol/Ipratropium (Duoneb -) 1 amp NEB RTID [facility] Last Admin: 10/02/18 20:30 Dose: 1 amp Levofloxacin (Levaquin 500 Mg Premixed Ivpb -) 500 mg in 100 mls @ 100 mls/hr IVPB DAILY [facility]; Protocol Last Admin: 10/02/18 09:26 Dose: 100 mls/hr Methylprednisolone Sodium Succinate (Solu-Medrol -) 40 mg IVPUSH DAILY [facility] Phenytoin Sodium (Dilantin -) 300 mg PO HS [facility] Last Admin: 10/02/18 22:36 Dose: 300 mg - Objective Vital Signs: Vital Signs Temperature 98.3 F 10/02/18 17:21 Pulse Rate 93 H 10/02/18 17:21 Respiratory Rate 20 10/02/18 17:21 Blood Pressure 130/80 10/02/18 17:21 O2 Sat by Pulse Oximetry (%) 97 10/02/18 09:00 Neck: Yes: WNL, Supple Cardiovascular: Yes: WNL Respiratory: Yes: Diminished, Other (Coarse BS B/L) Gastrointestinal: Yes: WNL, Normal Bowel Sounds, Soft Extremities: Yes: Other (LT BKA amputation) Edema: No Labs: CBC, BMP 10/01/18 06:34 10/01/18 06:34 Problem List - Problems (1) COPD exacerbation Assessment/Plan: Pt now on po levaquin/prednisone Cont nebulizers CXR showes ? infrahilar opacity CT scan chest shows ? rt infrahilar mass/COPD/atelectasis ?PET scan as outpt Explained to pt that she needs f/u as outpt w/ pulmonary and business reporting developer Code(s): J44.1 - CHRONIC OBSTRUCTIVE PULMONARY DISEASE W (ACUTE) EXACERBATION (2) CVA (cerebral vascular accident) Assessment/Plan: CT scan head showed chronic infarcts Will add asa Code(s): I63.9 - CEREBRAL INFARCTION, UNSPECIFIED (3) Pneumonia Assessment/Plan: Cont po levaquin/nebulizers Code(s): J18.9 - PNEUMONIA, UNSPECIFIED ORGANISM Qualifiers: Pneumonia type: due to unspecified organism Laterality: unspecified laterality Lung location: unspecified part of lung Qualified Code(s): J18.9 - Pneumonia, unspecified organism (4) Thrombus Assessment/Plan: Thrombus in lower thoracic and upper abdominal aorta Code(s): I82.90 - ACUTE EMBOLISM AND THROMBOSIS OF UNSPECIFIED VEIN
[2018-10-03 07:45] LABS: BASO % 0.3 % (0-2.0); EOS % 0.4 % (0-4.5); HEMATOCRIT 43.1 % (32.4-45.2); HEMOGLOBIN 14.4 GM/dL (10.7-15.3); LYMPH % 23.1 % (8-40); MCH 32.2 pg (25.7-33.7); MCHC 33.6 g/dl (32.0-36.0); MEAN CELL VOLUME 95.8 fl (80-96); MEAN PLT VOLUME 8.3 fl (7.5-11.1); MONO % 11.6 % (3.8-10.2); NEUT % 64.6 % (42.8-82.8); PLATELET COUNT 330 K/MM3 (134-434); RBC 4.49 M/mm3 (3.60-5.2); RDW 13.9 % (11.6-15.6)
[2018-10-03] MEDS: ALBUTEROL SO4 2.5/IPRATROPIUM 0.5 INH SOL 3 ML VIAL.NEB. NEB SCH ×3 (08:00→20:09)
[2018-10-03 08:27] LABS: ALBUMIN 2.8 g/dl (3.4-5.0); BILIRUBIN,TOTAL 0.4 mg/dL (0.2-1); BLOOD UREA NITROGEN 12.8 mg/dL (7-18); CALCIUM 8.2 mg/dL (8.5-10.1); CREATININE 0.6 mg/dL (0.55-1.3); POTASSIUM 3.3 mmol/L (3.5-5.1); TOT PROT 6.2 g/dl (6.4-8.2)
[2018-10-03] MEDS: methylPREDNISolone NA SUCC 40 MG/1 ML VIAL IVPUSH SCH (09:41)
[2018-10-03] MEDS ORDERED: POTASSIUM CHLORIDE TABS 20 MEQ TABLET.ER (FP) PO ONE (11:15)
--- NOTE | 2018-10-03 11:18 | PN ---
Progress Note (short form) - Note Progress Note: Awake and alert. Breathing feels better. Still with some moist cough but improving. No CP. No SAGE. Intake & Output 09/30/18 10/01/18 10/02/18 10/03/18 23:59 23:59 23:59 23:59 Intake Total 0 50 570 Balance 0 50 570 Weight 120 lb Last Vital Signs Temp Pulse Resp BP Pulse Ox 99 F 75 20 139/48 L 96 10/03/18 10:00 10/03/18 10:00 10/03/18 10:00 10/03/18 10:00 10/03/18 09:00 Active Medications Albuterol Sulfate (Ventolin 0.083% Nebulizer Soln -) 1 amp NEB Q4H PRN PRN Reason: SHORT OF BREATH/WHEEZING Albuterol/Ipratropium (Duoneb -) 1 amp NEB RTID [facility] Last Admin: 10/03/18 08:00 Dose: 1 amp Levofloxacin (Levaquin 500 Mg Premixed Ivpb -) 500 mg in 100 mls @ 100 mls/hr IVPB DAILY [facility]; Protocol Last Admin: 10/03/18 09:41 Dose: 100 mls/hr Methylprednisolone Sodium Succinate (Solu-Medrol -) 40 mg IVPUSH DAILY [facility] Last Admin: 10/03/18 09:41 Dose: 40 mg Phenytoin Sodium (Dilantin -) 300 mg PO HS [facility] Last Admin: 10/02/18 22:36 Dose: 300 mg Constitutional: Yes: Well Nourished, NAD Eyes: Yes: WNL HENT: Yes: WNL Neck: Yes: WNL Cardiovascular: Yes: Regular Rate and Rhythm, S1, S2 Respiratory: Yes: Bilateral scattered Rhonchi, no wheeze Gastrointestinal: Yes: Normal Bowel Sounds, Soft Extremities: Yes: WNL Edema: No Labs: Assessment/Plan Problem List - Problems (1) Abnormal CXR Code(s): R93.89 - ABNORMAL FINDINGS ON DX IMAGING OF OTH BODY STRUCTURES (2) COPD exacerbation Code(s): J44.1 - CHRONIC OBSTRUCTIVE PULMONARY DISEASE W (ACUTE) EXACERBATION (3) Pneumonia Code(s): J18.9 - PNEUMONIA, UNSPECIFIED ORGANISM Qualifiers: Pneumonia type: due to unspecified organism Laterality: unspecified laterality Lung location: unspecified part of lung Qualified Code(s): J18.9 - Pneumonia, unspecified organism Assessment/Plan Daily IV Medrol BD TX standing and PRN Levaquin PET CT outpatient Family will be providing CT images from [facility] Can consider change to oral therapy and DC planning Dr Hollingsworth Problem List - Problems (1) Abnormal CXR Code(s): R93.89 - ABNORMAL FINDINGS ON DX IMAGING OF OTH BODY STRUCTURES (2) COPD exacerbation Code(s): J44.1 - CHRONIC OBSTRUCTIVE PULMONARY DISEASE W (ACUTE) EXACERBATION (3) Pneumonia Code(s): J18.9 - PNEUMONIA, UNSPECIFIED ORGANISM Qualifiers: Pneumonia type: due to unspecified organism Laterality: unspecified laterality Lung location: unspecified part of lung Qualified Code(s): J18.9 - Pneumonia, unspecified organism
--- NOTE | 2018-10-03 21:06 | PN ---
Progress Note, Physician History of Present Illness: No new complaints - Current Medication List Current Medications: Active Medications Albuterol Sulfate (Ventolin 0.083% Nebulizer Soln -) 1 amp NEB Q4H PRN PRN Reason: SHORT OF BREATH/WHEEZING Albuterol/Ipratropium (Duoneb -) 1 amp NEB RTID [facility] Last Admin: 10/03/18 20:09 Dose: 1 amp Levofloxacin (Levaquin 500 Mg Premixed Ivpb -) 500 mg in 100 mls @ 100 mls/hr IVPB DAILY [facility]; Protocol Last Admin: 10/03/18 09:41 Dose: 100 mls/hr Methylprednisolone Sodium Succinate (Solu-Medrol -) 40 mg IVPUSH DAILY [facility] Last Admin: 10/03/18 09:41 Dose: 40 mg Phenytoin Sodium (Dilantin -) 300 mg PO HS [facility] Last Admin: 10/02/18 22:36 Dose: 300 mg - Objective Vital Signs: Vital Signs Temperature 97.6 F 10/03/18 14:10 Pulse Rate 86 10/03/18 14:10 Respiratory Rate 20 10/03/18 14:10 Blood Pressure 133/74 10/03/18 14:10 O2 Sat by Pulse Oximetry (%) 96 10/03/18 09:00 Neck: Yes: WNL, Supple Cardiovascular: Yes: WNL, Regular Rate and Rhythm Respiratory: Yes: WNL, Regular, CTA Bilaterally Gastrointestinal: Yes: WNL, Normal Bowel Sounds, Soft Labs: CBC, BMP 10/03/18 06:45 10/03/18 06:45 Problem List - Problems (1) COPD exacerbation Code(s): J44.1 - CHRONIC OBSTRUCTIVE PULMONARY DISEASE W (ACUTE) EXACERBATION (2) Seizure Code(s): R56.9 - UNSPECIFIED CONVULSIONS (3) Anxiety Code(s): F41.9 - ANXIETY DISORDER, UNSPECIFIED (4) CVA (cerebral vascular accident) Code(s): I63.9 - CEREBRAL INFARCTION, UNSPECIFIED (5) Pneumonia Code(s): J18.9 - PNEUMONIA, UNSPECIFIED ORGANISM Qualifiers: Pneumonia type: due to unspecified organism Laterality: unspecified laterality Lung location: unspecified part of lung Qualified Code(s): J18.9 - Pneumonia, unspecified organism (6) Thrombus Code(s): I82.90 - ACUTE EMBOLISM AND THROMBOSIS OF UNSPECIFIED VEIN
[2018-10-03] MEDS: PHENYTOIN NA EXTENDED 100 MG CAPSULE (FP) PO SCH (22:48)
[2018-10-04 07:52] LABS: BASO % 0.5 % (0-2.0); EOS % 1.3 % (0-4.5); HEMATOCRIT 43.9 % (32.4-45.2); HEMOGLOBIN 14.8 GM/dL (10.7-15.3); LYMPH % 19.5 % (8-40); MCH 32.4 pg (25.7-33.7); MCHC 33.7 g/dl (32.0-36.0); MEAN CELL VOLUME 95.9 fl (80-96); MEAN PLT VOLUME 7.9 fl (7.5-11.1); MONO % 11.1 % (3.8-10.2); NEUT % 67.6 % (42.8-82.8); PLATELET COUNT 296 K/MM3 (134-434); RBC 4.58 M/mm3 (3.60-5.2); RDW 14.3 % (11.6-15.6); WHITE BLOOD COUNT 9.8 K/mm3 (4.0-10.0)
[2018-10-04] MEDS: ALBUTEROL SO4 2.5/IPRATROPIUM 0.5 INH SOL 3 ML VIAL.NEB. NEB SCH ×3 (08:18→20:30)
[2018-10-04 08:48] LABS: ALBUMIN 2.8 g/dl (3.4-5.0); BILIRUBIN,TOTAL 0.3 mg/dL (0.2-1); BLOOD UREA NITROGEN 11.6 mg/dL (7-18); CALCIUM 8.3 mg/dL (8.5-10.1); CREATININE 0.5 mg/dL (0.55-1.3); POTASSIUM 3.8 mmol/L (3.5-5.1); TOT PROT 6.3 g/dl (6.4-8.2)
--- NOTE | 2018-10-04 12:13 | PN ---
Progress Note (short form) - Note Progress Note: Awake and alert. Reports breathing feels better. Still with some moist cough but improving. No CP. No SAGE. Intake & Output 10/01/18 10/02/18 10/03/18 10/04/18 23:59 23:59 23:59 23:59 Intake Total 50 570 200 Balance 50 570 200 Last Vital Signs Temp Pulse Resp BP Pulse Ox 98.4 F 79 22 H 132/88 96 10/04/18 09:58 10/04/18 09:58 10/04/18 09:58 10/04/18 09:58 10/04/18 09:00 Active Medications Albuterol Sulfate (Ventolin 0.083% Nebulizer Soln -) 1 amp NEB Q4H PRN PRN Reason: SHORT OF BREATH/WHEEZING Albuterol/Ipratropium (Duoneb -) 1 amp NEB RTID [facility] Last Admin: 10/04/18 08:18 Dose: 1 amp Levofloxacin (Levaquin 500 Mg Premixed Ivpb -) 500 mg in 100 mls @ 100 mls/hr IVPB DAILY [facility]; Protocol Last Admin: 10/03/18 09:41 Dose: 100 mls/hr Methylprednisolone Sodium Succinate (Solu-Medrol -) 40 mg IVPUSH DAILY [facility] Last Admin: 10/03/18 09:41 Dose: 40 mg Phenytoin Sodium (Dilantin -) 300 mg PO HS [facility] Last Admin: 10/03/18 22:48 Dose: 300 mg Constitutional: Yes: Well Nourished, NAD Eyes: Yes: WNL HENT: Yes: WNL Neck: Yes: WNL Cardiovascular: Yes: Regular Rate and Rhythm, S1, S2 Respiratory: Yes: Bilateral scattered Rhonchi, no wheeze Gastrointestinal: Yes: Normal Bowel Sounds, Soft Extremities: Yes: WNL Edema: No Labs: Laboratory Results - last 24 hr 10/04/18 10/04/18 06:30 06:30 WBC 9.8 RBC 4.58 Hgb 14.8 Hct 43.9 MCV 95.9 MCH 32.4 MCHC 33.7 RDW 14.3 Plt Count 296 MPV 7.9 Absolute Neuts (auto) 6.6 Neutrophils % 67.6 Lymphocytes % 19.5 Monocytes % 11.1 H Eosinophils % 1.3 D Basophils % 0.5 Nucleated RBC % 0 Sodium 146 H Potassium 3.8 Chloride 113 H Carbon Dioxide 27 Anion Gap 7 L BUN 11.6 Creatinine 0.5 L Est GFR (CKD-EPI)AfAm 108.96 Est GFR (CKD-EPI)NonAf 94.01 Random Glucose 98 Calcium 8.3 L Total Bilirubin 0.3 AST 23 ALT 34 Alkaline Phosphatase 127 H Total Protein 6.3 L Albumin 2.8 L Assessment/Plan Problem List - Problems (1) Abnormal CXR Code(s): R93.89 - ABNORMAL FINDINGS ON DX IMAGING OF OTH BODY STRUCTURES (2) COPD exacerbation Code(s): J44.1 - CHRONIC OBSTRUCTIVE PULMONARY DISEASE W (ACUTE) EXACERBATION (3) Pneumonia Code(s): J18.9 - PNEUMONIA, UNSPECIFIED ORGANISM Qualifiers: Pneumonia type: due to unspecified organism Laterality: unspecified laterality Lung location: unspecified part of lung Qualified Code(s): J18.9 - Pneumonia, unspecified organism Assessment/Plan Prednisone BD TX standing and PRN Levaquin PO PET CT outpatient Family will be providing CT images from [facility] planning Dr Hollingsworth Problem List - Problems (1) Abnormal CXR Code(s): R93.89 - ABNORMAL FINDINGS ON DX IMAGING OF OTH BODY STRUCTURES (2) COPD exacerbation Code(s): J44.1 - CHRONIC OBSTRUCTIVE PULMONARY DISEASE W (ACUTE) EXACERBATION (3) Pneumonia Code(s): J18.9 - PNEUMONIA, UNSPECIFIED ORGANISM Qualifiers: Pneumonia type: due to unspecified organism Laterality: unspecified laterality Lung location: unspecified part of lung Qualified Code(s): J18.9 - Pneumonia, unspecified organism
[2018-10-04] MEDS: methylPREDNISolone NA SUCC 40 MG/1 ML VIAL IVPUSH SCH (12:29)
[2018-10-04] MEDS: predniSONE 20 MG TABLET (UD) PO SCH (12:49)
--- NOTE | 2018-10-04 23:49 | PN ---
Progress Note, Physician History of Present Illness: No new complaints - Current Medication List Current Medications: Active Medications Albuterol Sulfate (Ventolin 0.083% Nebulizer Soln -) 1 amp NEB Q4H PRN PRN Reason: SHORT OF BREATH/WHEEZING Albuterol/Ipratropium (Duoneb -) 1 amp NEB RTID [facility] Last Admin: 10/04/18 20:30 Dose: 1 amp Levofloxacin (Levaquin -) 500 mg PO DAILY [facility] Last Admin: 10/04/18 12:49 Dose: 500 mg Phenytoin Sodium (Dilantin -) 300 mg PO HS [facility] Last Admin: 10/03/18 22:48 Dose: 300 mg Prednisone (Deltasone -) 40 mg PO DAILY [facility] Last Admin: 10/04/18 12:49 Dose: 40 mg - Objective Vital Signs: Vital Signs Temperature 98.6 F 10/04/18 15:29 Pulse Rate 81 10/04/18 15:29 Respiratory Rate 20 10/04/18 15:29 Blood Pressure 128/81 10/04/18 15:29 O2 Sat by Pulse Oximetry (%) 96 10/04/18 09:00 Neck: Yes: WNL, Supple Cardiovascular: Yes: WNL, Regular Rate and Rhythm Respiratory: Yes: Diminished Gastrointestinal: Yes: WNL, Normal Bowel Sounds, Soft Extremities: Yes: Other (LT BKA Amputation) Edema: No Labs: CBC, BMP 10/04/18 06:30 10/04/18 06:30 Problem List - Problems (1) COPD exacerbation Assessment/Plan: Pt now on po levaquin/prednisone DC planning for am Cont nebulizers CXR showes ? infrahilar opacity CT scan chest shows ? 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 Code(s): J44.1 - CHRONIC OBSTRUCTIVE PULMONARY DISEASE W (ACUTE) EXACERBATION (2) CVA (cerebral vascular accident) Code(s): I63.9 - CEREBRAL INFARCTION, UNSPECIFIED (3) Pneumonia Assessment/Plan: Cont po levaquin/nebulizers Code(s): J18.9 - PNEUMONIA, UNSPECIFIED ORGANISM Qualifiers: Pneumonia type: due to unspecified organism Laterality: unspecified laterality Lung location: unspecified part of lung Qualified Code(s): J18.9 - Pneumonia, unspecified organism (4) Thrombus Assessment/Plan: Thrombus in lower thoracic and upper abdominal aorta Code(s): I82.90 - ACUTE EMBOLISM AND THROMBOSIS OF UNSPECIFIED VEIN (5) CVA (cerebral vascular accident) Assessment/Plan: CT scan head showed chronic infarcts Code(s): I63.9 - CEREBRAL INFARCTION, UNSPECIFIED
[2018-10-05] MEDS ORDERED: clonazePAM 0.5 MG TABLET PO PRN (00:15)
[2018-10-05] MEDS: PHENYTOIN NA EXTENDED 100 MG CAPSULE (FP) PO SCH ×2 (01:26→22:18)
[2018-10-05] MEDS: ALBUTEROL SO4 2.5/IPRATROPIUM 0.5 INH SOL 3 ML VIAL.NEB. NEB SCH ×3 (07:45→20:17)
[2018-10-05] MEDS: predniSONE 20 MG TABLET (UD) PO SCH (10:04)
[2018-10-05] MEDS: ASPIRIN COATED 81 MG TABLET.EC PO SCH (10:05)
--- NOTE | 2018-10-05 14:00 | PN ---
Progress Note (short form) - Note Progress Note: PULMONARY States breathing better. +cough with productive sputum. No fevers or chills. States levaquin makes her itchy. Vital Signs Period Temp Pulse Resp BP Sys/Shin Pulse Ox Last 24 Hr 98.2 F-98.6 F 76-96 20-22 124-138/76-81 97 Gen: mildly tachypneic at rest Heart: RRR Lung: scattered rhonchi, wheezes Abd: soft, nontender Ext: no edema, L AKA CBC, BMP 10/04/18 06:30 10/04/18 06:30 Active Medications Albuterol Sulfate (Ventolin 0.083% Nebulizer Soln -) 1 amp NEB Q4H PRN PRN Reason: SHORT OF BREATH/WHEEZING Albuterol/Ipratropium (Duoneb -) 1 amp NEB RTID [facility] Last Admin: 10/05/18 07:45 Dose: 1 amp Aspirin (Ecotrin -) 81 mg PO DAILY [facility] Last Admin: 10/05/18 10:05 Dose: 81 mg Clonazepam (Klonopin -) 0.5 mg PO BID PRN PRN Reason: ANXIETY Levofloxacin (Levaquin -) 500 mg PO DAILY [facility] Last Admin: 10/05/18 10:04 Dose: 500 mg Phenytoin Sodium (Dilantin -) 300 mg PO HS [facility] Last Admin: 10/05/18 01:26 Dose: 300 mg Prednisone (Deltasone -) 40 mg PO DAILY [facility] Last Admin: 10/05/18 10:04 Dose: 40 mg A/P Acute COPD exacerbation Pneumonia 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
--- NOTE | 2018-10-05 22:22 | PN ---
Progress Note, Physician History of Present Illness: Spoke to family member and discussed case w/ son Son and pt are aware that pt needs close interval follow up of lung mass and will need PET Scan - Current Medication List Current Medications: Active Medications Albuterol Sulfate (Ventolin 0.083% Nebulizer Soln -) 1 amp NEB Q4H PRN PRN Reason: SHORT OF BREATH/WHEEZING Albuterol/Ipratropium (Duoneb -) 1 amp NEB RTID [facility] Last Admin: 10/05/18 20:17 Dose: 1 amp Aspirin (Ecotrin -) 81 mg PO DAILY [facility] Last Admin: 10/05/18 10:05 Dose: 81 mg Clonazepam (Klonopin -) 0.5 mg PO BID PRN PRN Reason: ANXIETY Levofloxacin (Levaquin -) 500 mg PO DAILY [facility] Last Admin: 10/05/18 10:04 Dose: 500 mg Phenytoin Sodium (Dilantin -) 300 mg PO HS [facility] Last Admin: 10/05/18 22:18 Dose: 300 mg Prednisone (Deltasone -) 40 mg PO DAILY [facility] Last Admin: 10/05/18 10:04 Dose: 40 mg - Objective Vital Signs: Vital Signs Temperature 98.2 F 10/05/18 17:14 Pulse Rate 85 10/05/18 17:14 Respiratory Rate 20 10/05/18 17:14 Blood Pressure 130/68 10/05/18 17:14 O2 Sat by Pulse Oximetry (%) 97 10/05/18 09:00 Neck: Yes: WNL, Supple Cardiovascular: Yes: WNL, Regular Rate and Rhythm Respiratory: Yes: Diminished Gastrointestinal: Yes: WNL, Normal Bowel Sounds, Soft Extremities: Yes: Other (LT BKA) Edema: No Labs: CBC, BMP 10/04/18 06:30 10/04/18 06:30 Problem List - Problems (1) COPD exacerbation Assessment/Plan: Pt now on po levaquin/prednisone Discharge pt home Cont nebulizers CXR showes ? infrahilar opacity CT scan chest shows ? 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 Cont asa Code(s): I63.9 - CEREBRAL INFARCTION, UNSPECIFIED (5) Pneumonia Assessment/Plan: Cont po levaquin/nebulizers Code(s): J18.9 - PNEUMONIA, UNSPECIFIED ORGANISM Qualifiers: Pneumonia type: due to unspecified organism Laterality: unspecified laterality Lung location: unspecified part of lung Qualified Code(s): J18.9 - Pneumonia, unspecified organism (6) Thrombus Assessment/Plan: Thrombus in lower thoracic and upper abdominal aorta Pt evaluated by vasc and no further intervention at this time Code(s): I82.90 - ACUTE EMBOLISM AND THROMBOSIS OF UNSPECIFIED VEIN
[2018-10-06] MEDS: ALBUTEROL SO4 2.5/IPRATROPIUM 0.5 INH SOL 3 ML VIAL.NEB. NEB SCH (07:15)
[2018-10-06] MEDS: predniSONE 20 MG TABLET (UD) PO SCH ×2 (08:46→09:09)
[2018-10-06] MEDS: ASPIRIN COATED 81 MG TABLET.EC PO SCH ×2 (08:46→09:09)
[2018-10-06 09:19] VITALS: BP 124/81; PULSE 91; TEMP 99
== END 2018-10-06 11:44 | disposition home health service (06) | DRG 190 ==
LOC: JER 20:39 → JERBED 09-28 00:43 → J7W 09-28 05:21
PROVIDERS: ADMIT Internal Medicine; ATTEND Internal Medicine
DX: J44.1 Chronic obstructive pulmonary disease with (acute) exacerbation (principal); J18.9 Pneumonia, unspecified organism; G93.41 Metabolic encephalopathy; J98.11 Atelectasis; I74.09 Other arterial embolism and thrombosis of abdominal aorta; I74.11 Embolism and thrombosis of thoracic aorta; I69.354 Hemiplegia and hemiparesis following cerebral infarction affecting left non-dominant side; G93.89 Other specified disorders of brain
CPT/HCPCS: 36415; 70450-TC; 71045-TC-FY; 71260-TC; 71275-TC; 72191-TC; 74175-TC; 80053; 80185; 82607; 82803; 83880; 84443; 84484; 85025; 86593; 93005; 93010; 94640; 97116-GP; 97161-GP; 99282-25